=== PATIENT | female | born 1965 | race Caucasian/White ===

== ENCOUNTER 2020-02-22 05:38 | Inpatient (IN) | payer BC ==
[~2020-02-22] VITALS: Ht 154.9 cm; Wt 85.4 kg
[2020-02-22] MEDS ORDERED: LACTATED RINGERS 1,000 ML IV SCH (06:36)
[2020-02-22] MEDS ORDERED: CHLORHEXIDINE 15 ML UDC MM STA (06:36)
[2020-02-22] MEDS ORDERED: CHLORHEXIDINE 15 ML UDC ONE (06:39)
[2020-02-22] MEDS ORDERED: ACETAMINOPHEN 500 MG TABLET PO STA (07:01)
[2020-02-22] MEDS ORDERED: OMEP20TA62 PO (07:04)
[2020-02-22] MEDS ORDERED: ROSUVASTATIN (07:04)
[2020-02-22] MEDS ORDERED: GABA300C PO (07:04)
[2020-02-22] MEDS ORDERED: LEVO75TA5 PO (07:04)
[2020-02-22] MEDS ORDERED: EPINEPHRINE 1 MG/ML, 1ML ONE (07:07)
[2020-02-22] MEDS ORDERED: VANCOMYCIN 1,000 MG ONE (07:07)
[2020-02-22] MEDS ORDERED: BUPIVACAINE/PF 0.25% ONE (07:07)
[2020-02-22] MEDS ORDERED: FENTANYL PF 250 MCG/5ML ONE (07:09)
[2020-02-22] MEDS ORDERED: MIDAZOLAM 1 MG/ML, 2ML ONE (07:09)
[2020-02-22] MEDS ORDERED: SODIUM CHLORIDE 0.9% PF 10ML ONE (07:13)
[2020-02-22] MEDS ORDERED: LIDOCAINE/PF 0.5% ,50ML ONE (07:23)
[2020-02-22] MEDS ORDERED: hydrALAzine 20 MG/ML, 1ML IV PRN (07:30)
[2020-02-22] MEDS ORDERED: MEPERIDINE/PF 25MG/0.5ML IVPush PRN (07:30)
[2020-02-22] MEDS ORDERED: EPHEDRINE 50 MG/ML, 1ML IVPush PRN (07:30)
[2020-02-22] MEDS ORDERED: ONDANSETRON 2MG/ML, 2ML IVPush PRN (07:30)
[2020-02-22] MEDS ORDERED: PROMETHAZINE 25 MG/ML, 1ML IVPush PRN (07:30)
[2020-02-22] MEDS ORDERED: OXYcodone 5 MG/5 ML ORAL.SOL UDC PO PRN (07:30)
[2020-02-22] MEDS ORDERED: LABETALOL 5MG/ML, 20ML IV PRN (07:30)
[2020-02-22] MEDS ORDERED: ROCURONIUM 10 MG/ML,10ML ONE (07:49)
[2020-02-22] MEDS ORDERED: CEFAZOLIN 1,000 MG ONE (08:02)
[2020-02-22] MEDS ORDERED: ONDANSETRON 2MG/ML, 2ML ONE (08:02)
[2020-02-22] MEDS ORDERED: SUCCINYLCHOLINE 20 MG/ML, 10ML ONE (08:02)
[2020-02-22] MEDS ORDERED: PROPOFOL 10 MG/ML, 20ML ONE (08:02)
[2020-02-22] MEDS ORDERED: DEXAMETHASONE 4 MG/ML, 1ML ONE (08:02)
[2020-02-22] MEDS ORDERED: KETOROLAC 30 MG/1 ML ONE (08:02)
[2020-02-22] MEDS ORDERED: EPHEDRINE 50 MG/ML, 1ML ONE (08:10)
[2020-02-22] MEDS ORDERED: SUGAMMADEX 200 MG/2 ML IVPush ONE (08:40)
[2020-02-22] MEDS ORDERED: FENTANYL PF 100 MCG/2ML ONE (11:28)
[2020-02-22] MEDS ORDERED: OXYcodone 5 MG/5 ML ORAL.SOL UDC ONE (11:28)
[2020-02-22] MEDS ORDERED: HYDROmorphone 1 MG/ML, 1ML INJ ONE (11:28)
[2020-02-22] MEDS: FENTANYL PF 100 MCG/2ML IV PRN ×2 (11:29→11:35)
[2020-02-22] MEDS: HYDROmorphone 1 MG/ML, 1ML INJ IVPush PRN ×2 (11:45→11:55)
[2020-02-22 12:43] VITALS: BP 127/66
[2020-02-22] MEDS ORDERED: PHARMACY MAY ADJ FOR RENAL FX MC PRN (13:00)
[2020-02-22] MEDS ORDERED: HYDROcodone/APAP 5/325 TABLET PO PRN (13:00)
[2020-02-22] MEDS ORDERED: DIPHENHYDRAMINE 25 MG CAPSULE PO PRN (13:00)
[2020-02-22] MEDS ORDERED: SODIUM CHLORIDE 0.9% 1,000ML IV PRN (13:30)
[2020-02-22] MEDS ORDERED: DIPHENHYDRAMINE 50 MG/ML, 1ML IM PRN (13:30)
[2020-02-22] MEDS ORDERED: DIPHENHYDRAMINE 50 MG/ML, 1ML IVPush PRN (13:30)
[2020-02-22] MEDS ORDERED: MAGNESIUM HYDROXIDE 8%, 30ML UDC PO PRN (13:30)
[2020-02-22] MEDS: CEFAZOLIN PMX 1GM/50ML 50 ML IVPB SCH (15:39)
[2020-02-22] MEDS: D5%-0.9% NACL+KCL 20MEQ 1,000 ML IV SCH (18:16)
[2020-02-22 20:24] VITALS: BP 119/69
[2020-02-22] MEDS: SENNA/DOCUSATE TABLET PO SCH (21:00)
[2020-02-23 01:12] VITALS: BP 114/65
[2020-02-23] MEDS: CEFAZOLIN PMX 1GM/50ML 50 ML IVPB SCH (01:44)
[2020-02-23] MEDS: ONDANSETRON 2MG/ML, 2ML IV PRN ×2 (02:14→22:10)
[2020-02-23 03:46] VITALS: BP 100/65
[2020-02-23] MEDS: OMEPRAZOLE 20 MG CAPSULE.DR PO SCH (05:47)
[2020-02-23] MEDS: LEVOTHYROXINE 75 MCG TABLET PO SCH (05:47)
[2020-02-23] MEDS: D5%-0.9% NACL+KCL 20MEQ 1,000 ML IV SCH ×3 (05:49→23:00)
[2020-02-23 06:22] LABS: ALBUMIN 3.2 g/dL (3.4-5.0); ANION GAP 6 mmol/L (5-15); CALCIUM 8.3 mg/dL (8.5-10.1); CHLORIDE 111 mmol/L (98-107)
[2020-02-23 06:27] LABS: ALANINE AMINOTRANSFERASE 21 U/L (12-78); ALKALINE PHOSPHATASE 90 U/L (45-117); BILIRUBIN,TOTAL 0.7 mg/dL (0.2-1.0); TOTAL PROTEIN 6.3 g/dL (6.4-8.2)
[2020-02-23] MEDS: PROMETHAZINE 25 MG/ML, 1ML IM PRN (07:16)
[2020-02-23] MEDS: METHOCARBAMOL 750 MG TABLET PO PRN ×2 (07:38→15:47)
[2020-02-23 08:42] VITALS: BP 144/81
[2020-02-23] MEDS ORDERED: GABAPENTIN 300 MG CAPSULE PO SCH (09:00)
[2020-02-23] MEDS: GABAPENTIN 300 MG CAPSULE PO SCH ×3 (09:37→22:08)
[2020-02-23] MEDS: OXYcodone IR 5MG TABLET PO PRN ×5 (09:38→23:26)
[2020-02-23] MEDS: SENNA/DOCUSATE TABLET PO SCH ×2 (10:49→22:07)
[2020-02-23] MEDS ORDERED: DIAZEPAM 5 MG/ML, 10ML VIAL IV PRN (11:00)
[2020-02-23 11:04] LABS: BASOPHILS % (AUTO) 0 % (0-1); EOSINOPHILS % (AUTO) 1 % (1-7); LYMPHOCYTES % (AUTO) 20 % (22-44); MEAN CORPUSCULAR HEMOGLOBIN 29.4 pg (27.0-34.8); MEAN CORPUSCULAR HGB CONC 32.9 g/dL (32.4-35.8); MEAN PLATELET VOLUME 7.7 fL (7.4-10.4); MONOCYTES % (AUTO) 9 % (2-9); NEUTROPHILS % (AUTO) 71 % (42-75); PLATELET COUNT 223 x10^3/uL (130-400); RED BLOOD COUNT 4.23 x10^6/uL (3.82-5.3); RED CELL DISTRIBUTION WIDTH 12.8 % (9.6-15.2)
[2020-02-23 11:05] LABS: MD NO
[2020-02-23 19:29] VITALS: BP 113/56
[2020-02-23] MEDS ORDERED: DIAZEPAM 5 MG/ML, 2ML IV PRN (21:00)
[2020-02-23] MEDS: MORPHINE SULFATE 4 MG/ML, 1ML IVPush PRN (22:08)
[2020-02-24 01:17] VITALS: BP 98/59
[2020-02-24] MEDS: METHOCARBAMOL 750 MG TABLET PO PRN ×3 (02:07→17:36)
[2020-02-24] MEDS: MORPHINE SULFATE 4 MG/ML, 1ML IVPush PRN ×3 (02:07→09:29)
[2020-02-24] MEDS: OXYcodone IR 5MG TABLET PO PRN ×3 (03:49→13:42)
[2020-02-24 04:45] LABS: BASOPHILS % (AUTO) 0 % (0-1); EOSINOPHILS % (AUTO) 1 % (1-7); LYMPHOCYTES % (AUTO) 21 % (22-44); MEAN CORPUSCULAR HEMOGLOBIN 29.6 pg (27.0-34.8); MEAN CORPUSCULAR HGB CONC 32.9 g/dL (32.4-35.8); MEAN PLATELET VOLUME 7.5 fL (7.4-10.4); MONOCYTES % (AUTO) 10 % (2-9); NEUTROPHILS % (AUTO) 68 % (42-75); PLATELET COUNT 200 x10^3/uL (130-400); RED BLOOD COUNT 4.12 x10^6/uL (3.82-5.3); RED CELL DISTRIBUTION WIDTH 12.9 % (9.6-15.2)
[2020-02-24 04:54] LABS: ANION GAP 3 mmol/L (5-15); CALCIUM 8.2 mg/dL (8.5-10.1); CHLORIDE 110 mmol/L (98-107); CREATININE 0.92 mg/dL (0.55-1.02)
[2020-02-24 05:10] LABS: MD NO
[2020-02-24] MEDS: OMEPRAZOLE 20 MG CAPSULE.DR PO SCH (06:12)
[2020-02-24] MEDS: LEVOTHYROXINE 75 MCG TABLET PO SCH (06:12)
[2020-02-24 07:20] VITALS: BP 107/56
[2020-02-24] MEDS: GABAPENTIN 300 MG CAPSULE PO SCH ×2 (08:43→17:36)
[2020-02-24] MEDS: SENNA/DOCUSATE TABLET PO SCH (08:43)
[2020-02-24] MEDS: ONDANSETRON 2MG/ML, 2ML IV PRN (08:52)
[2020-02-24] MEDS: D5%-0.9% NACL+KCL 20MEQ 1,000 ML IV SCH ×2 (09:00→19:00)
[2020-02-24 14:00] VITALS: BP 131/70
[2020-02-24] MEDS ORDERED: DEXAMETHASONE 4 MG/ML, 1ML IVPush PRN (14:30)
[2020-02-24] MEDS ORDERED: KETOROLAC 30 MG/1 ML IM PRN (14:30)
[2020-02-24 19:00] VITALS: BP 103/68
[2020-02-25] MEDS: GABAPENTIN 300 MG CAPSULE PO SCH ×3 (00:16→17:06)
[2020-02-25] MEDS: OXYcodone IR 5MG TABLET PO PRN ×2 (00:17→05:22)
[2020-02-25] MEDS: SENNA/DOCUSATE TABLET PO SCH ×2 (00:17→08:51)
[2020-02-25] MEDS: ONDANSETRON 2MG/ML, 2ML IV PRN (00:18)
[2020-02-25] MEDS: ONDANSETRON ODT 4 MG PO PRN ×2 (01:05→08:51)
[2020-02-25] MEDS: METHOCARBAMOL 750 MG TABLET PO PRN ×2 (01:06→08:51)
[2020-02-25 03:55] VITALS: BP 142/66
[2020-02-25] MEDS: D5%-0.9% NACL+KCL 20MEQ 1,000 ML IV SCH ×2 (05:00→15:00)
[2020-02-25] MEDS: LEVOTHYROXINE 75 MCG TABLET PO SCH (05:21)
[2020-02-25] MEDS: OMEPRAZOLE 20 MG CAPSULE.DR PO SCH (05:22)
[2020-02-25 08:02] VITALS: BP 119/77
[2020-02-25] MEDS: HYDROcodone/APAP 10/325 MG TABLET PO PRN ×3 (08:51→17:06)
[2020-02-25] MEDS: BISACODYL 10 MG SUPP PR PRN (14:19)
[2020-02-25 14:45] VITALS: BP 105/68
[2020-02-25 19:40] VITALS: BP 121/52
[2020-02-26] MEDS: GABAPENTIN 300 MG CAPSULE PO SCH ×2 (00:07→09:24)
[2020-02-26] MEDS: SENNA/DOCUSATE TABLET PO SCH ×2 (00:07→09:25)
[2020-02-26] MEDS: METHOCARBAMOL 750 MG TABLET PO PRN ×2 (00:08→07:38)
[2020-02-26] MEDS: HYDROcodone/APAP 10/325 MG TABLET PO PRN ×5 (00:08→12:36)
[2020-02-26] MEDS: ONDANSETRON ODT 4 MG PO PRN (00:10)
[2020-02-26 00:12] VITALS: BP 115/64
[2020-02-26] MEDS: D5%-0.9% NACL+KCL 20MEQ 1,000 ML IV SCH ×2 (01:00→10:29)
[2020-02-26] MEDS: LEVOTHYROXINE 75 MCG TABLET PO SCH (06:21)
[2020-02-26] MEDS: OMEPRAZOLE 20 MG CAPSULE.DR PO SCH (06:21)
[2020-02-26 09:00] VITALS: BP 110/72
[2020-02-26] MEDS: BISACODYL 10 MG SUPP PR PRN (09:27)
[2020-02-26] MEDS ORDERED: HYDR-3246 PO (10:17)
[2020-02-26] MEDS ORDERED: METH750T87 PO (10:17)
[2020-02-26] MEDS ORDERED: ONDA4TAB7 PO (10:18)
[2020-02-26] MEDS: PROMETHAZINE 25 MG/ML, 1ML IM PRN (12:36)
== END 2020-02-26 13:20 | disposition home or self-care (01) | DRG 460 ==
LOC: ORIP 05:38 → 3WST 12:45 → DCLOUNGE 02-26 13:05
PROVIDERS: ADMIT Orthopaedic Surgery Orthopaedic Surgery of the Spine; ATTEND Orthopaedic Surgery Orthopaedic Surgery of the Spine
PROC: 00NY0ZZ Release Lumbar Spinal Cord, Open Approach (ICD-10-PCS; 2020-02-22)
PROC: 0SG00AJ Fusion of Lumbar Vertebral Joint with Interbody Fusion Device, Posterior Approach, Anterior Column, Open Approach (ICD-10-PCS; principal; 2020-02-22 07:30)
DX: M48.07 Spinal stenosis, lumbosacral region (principal); M43.17 Spondylolisthesis, lumbosacral region; M54.17 Radiculopathy, lumbosacral region; Z20.828 Contact with and (suspected) exposure to other viral communicable diseases
CPT/HCPCS: 36415; 72100; 80048; 80053; 85025; 87635; C1713; G0378; J0171; J0690; J1100; J1170; J1885; J2001; J2250; J2270; J2405; J2550; J2704; J3010; J3360; J3370; Q0162; C1762; J0330; J3480; J7120